=== PATIENT | female | born 1935 | race African-American/Black ===

== ENCOUNTER 2018-07-05 08:20 | Inpatient (IN) ==
[2018-07-05 09:06] LABS: Basophils % 0.1 % (0.0-0.8); Eosinophils % 0.3 % (0.00-10.9); Hematocrit 34.4 VOL% (35.7-47.0); Hemoglobin 10.8 GM/DL (12.0-16.0); Immature Granulocytes % 1.3 %; Lymphocytes # 1.2 10*3/uL (1.4-4.0); Lymphocytes % 15.4 % (21.3-54.2); Mean Corpuscular HGB Conc 31.4 GM/DL (32-36); Mean Corpuscular Hemoglobin 31 PG (27-34); Mean Corpuscular Volume 98.9 FL (87-102); Mean Platelet Volume 9.9 FL (9.6-12.0); Monocytes # 0.4 10*3/uL (0.11-0.8); Monocytes % 4.6 % (1.7-12.7); NRBC # 0.02 10*3/uL; Neutrophils % 78.3 % (38.7-73.9); Platelet Count 178 T/CUMM (130-400); Red Blood Count 3.48 MC/CUMM (3.8-5.5); Red Cell Distribution Width 15.9 % (9.3-17.3); White Blood Count 7.7 T/CUMM (4-12)
[2018-07-05] MEDS ORDERED: ALBUTEROL/IPRATROPIUM 3 ML NEB RESP TX STA (09:20)
[2018-07-05 09:23] LABS: Alanine Aminotransferase 24 U/L (13-56); Albumin 2.1 G/DL (3.4-5.0); Alkaline Phosphatase 70 U/L (45-117); Aspartate Amino Transferase 22 U/L (0-37); Bilirubin,Total < 0.39 MG/DL (0.2-1.0); Blood Urea Nitrogen 41 MG/DL (7-18); Calcium 8.7 MG/DL (8.5-10.1); Glucose 185 MG/DL (74-106); Osmolality,Calculated 271.1 MOS/KG (273-304); Potassium 4.6 MMOL/L (3.5-5.1); Sodium 128 MMOL/L (136-145); Total Protein 7.7 G/DL (6.4-8.3)
[2018-07-05 09:26] LABS: Lactic Acid 0.8 MMOL/L (0.4-2.0)
[2018-07-05 09:43] LABS: Apearance,Urine Slightly Hazy (Clear); Bacteria,Urine Occasional /HPF (Few); Bilirubin,Urine Negative (Negative); Blood, Urine Negative (Negative); Glucose,Urine (UA) Negative (Negative); Ketones,Urine Negative (Negative); Mucus,Urine Occasional /LPF (Occasional); Nitrite,Urine Negative (Negative); Protein,Urine 100 MG/DL; RBC,Urine 3 /HPF (0-4); Squamous Epithelial Cell,Urine Occasional /HPF (0-10); Urine Color Yellow (Yellow); Urine Specific Gravity 1.014 (1.001-1.035); Urine Urobilinogen < 2.0 EU/DL (0.2-1.0); WBC,Urine 3 /HPF (0-6)
[2018-07-05] MEDS ORDERED: SODIUM CHLORIDE 0.9% 1,000 ML IV STA (09:46)
[2018-07-05] MEDS ORDERED: ONDANSETRON 4 MG/2 ML VIAL IV PRN (11:53)
[2018-07-05] MEDS ORDERED: ACETAMINOPHEN 325 MG TABLET PO PRN (11:53)
[2018-07-05] MEDS ORDERED: DEXTROSE 50% 25 GM/50 ML VIAL IV PRN (15:20)
[2018-07-05] MEDS ORDERED: GLUCAGON 1 MG VIAL IM PRN (15:20)
[2018-07-05] MEDS ORDERED: LACTULOSE 20 GM/30 ML UDCUP PO ONE ×2 (16:07→16:13)
[2018-07-05] MEDS ORDERED: BISACODYL 5 MG TABLET PO PRN (16:44)
[2018-07-05] MEDS: SODIUM CHLORIDE 0.9% 1,000 ML IV SCH (17:44)
[2018-07-05] MEDS: INSULIN LISPRO 100 UNIT/ML SUBCUT SCH (17:46)
[2018-07-05] MEDS: POLYETHYLENE GLYCOL POWDER 17 GM PACK PO SCH (17:52)
[2018-07-05] MEDS: ALBUTEROL/IPRATROPIUM 3 ML NEB RESP TX SCH ×2 (19:52→23:39)
[2018-07-06] MEDS: INSULIN LISPRO 100 UNIT/ML SUBCUT SCH ×4 (01:24→16:59)
[2018-07-06] MEDS: ALBUTEROL/IPRATROPIUM 3 ML NEB RESP TX SCH ×6 (03:13→23:49)
[2018-07-06 04:00] LABS: Basophils % 0.3 % (0.0-0.8); Eosinophils % 0.4 % (0.00-10.9); Hemoglobin 9.4 GM/DL (12.0-16.0); Immature Granulocytes Absolute 0.08 #; Lymphocytes # 1.2 10*3/uL (1.4-4.0); Lymphocytes % 15.6 % (21.3-54.2); Mean Corpuscular HGB Conc 31.3 GM/DL (32-36); Mean Corpuscular Hemoglobin 31 PG (27-34); Mean Corpuscular Volume 98.4 FL (87-102); Mean Platelet Volume 10.4 FL (9.6-12.0); Monocytes # 0.4 10*3/uL (0.11-0.8); Monocytes % 5.6 % (1.7-12.7); Neutrophils # 6.1 10*3/uL (1.4-7.4); Neutrophils % 77.1 % (38.7-73.9); Platelet Count 191 T/CUMM (130-400); Red Blood Count 3.05 MC/CUMM (3.8-5.5); Red Cell Distribution Width 15.8 % (9.3-17.3); White Blood Count 7.9 T/CUMM (4-12)
[2018-07-06 04:29] LABS: Prealbumin 21.3 MG/DL (20-40)
[2018-07-06 04:34] LABS: Calcium 8.7 MG/DL (8.5-10.1); Osmolality,Calculated 277.4 MOS/KG (273-304); Potassium 4.9 MMOL/L (3.5-5.1); Thyroid Stimulating Hormone 3.76 uIU/ml (0.358-3.74)
[2018-07-06] MEDS: PANTOPRAZOLE 40 MG TABLET PO SCH (10:13)
[2018-07-06] MEDS: POLYETHYLENE GLYCOL POWDER 17 GM PACK PO SCH (10:13)
[2018-07-06] MEDS: SODIUM CHLORIDE 0.9% 1,000 ML IV SCH (13:22)
[2018-07-06] MEDS ORDERED: SODIUM PHOSPHATE ENEMA 133 ML BOTTLE RECTAL ONE (15:32)
[2018-07-07] MEDS: INSULIN LISPRO 100 UNIT/ML SUBCUT SCH ×4 (01:21→16:19)
[2018-07-07] MEDS: ALBUTEROL/IPRATROPIUM 3 ML NEB RESP TX SCH ×6 (03:40→23:58)
[2018-07-07 04:34] LABS: Basophils % 0.4 % (0.0-0.8); Eosinophils # 0.1 10*3/uL (0.0-0.87); Eosinophils % 0.9 % (0.00-10.9); Hematocrit 31.2 VOL% (35.7-47.0); Hemoglobin 9.5 GM/DL (12.0-16.0); Immature Granulocytes % 0.5 %; Immature Granulocytes Absolute 0.04 #; Lymphocytes # 1.7 10*3/uL (1.4-4.0); Lymphocytes % 22.7 % (21.3-54.2); Mean Corpuscular HGB Conc 30.4 GM/DL (32-36); Mean Corpuscular Hemoglobin 30 PG (27-34); Mean Corpuscular Volume 99.7 FL (87-102); Mean Platelet Volume 10.3 FL (9.6-12.0); Monocytes # 0.5 10*3/uL (0.11-0.8); Monocytes % 6.6 % (1.7-12.7); NRBC # 0.02 10*3/uL; Neutrophils # 5.1 10*3/uL (1.4-7.4); Neutrophils % 68.9 % (38.7-73.9); Platelet Count 201 T/CUMM (130-400); Red Blood Count 3.13 MC/CUMM (3.8-5.5); Red Cell Distribution Width 16.3 % (9.3-17.3); White Blood Count 7.4 T/CUMM (4-12)
[2018-07-07 04:58] LABS: Calcium 8.8 MG/DL (8.5-10.1); Osmolality,Calculated 281.8 MOS/KG (273-304); Potassium 4.5 MMOL/L (3.5-5.1)
[2018-07-07] MEDS ORDERED: SODIUM PHOSPHATE ENEMA 133 ML BOTTLE RECTAL PRN (09:00)
[2018-07-07] MEDS: SODIUM CHLORIDE 0.9% 1,000 ML IV SCH ×2 (10:14→17:40)
[2018-07-07] MEDS: PANTOPRAZOLE 40 MG TABLET PO SCH (10:15)
[2018-07-07] MEDS: POLYETHYLENE GLYCOL POWDER 17 GM PACK PO SCH (10:15)
[2018-07-07] MEDS: LACTULOSE 20 GM/30 ML UDCUP PO SCH ×2 (15:34→17:39)
[2018-07-08] MEDS: INSULIN LISPRO 100 UNIT/ML SUBCUT SCH ×3 (00:48→12:59)
[2018-07-08] MEDS: LACTULOSE 20 GM/30 ML UDCUP PO SCH ×3 (01:24→13:00)
[2018-07-08] MEDS: ALBUTEROL/IPRATROPIUM 3 ML NEB RESP TX SCH ×3 (04:10→10:20)
[2018-07-08 06:18] LABS: Basophils % 0.2 % (0.0-0.8); Eosinophils # 0.1 10*3/uL (0.0-0.87); Eosinophils % 1.4 % (0.00-10.9); Hematocrit 28.3 VOL% (35.7-47.0); Hemoglobin 8.7 GM/DL (12.0-16.0); Immature Granulocytes % 0.3 %; Immature Granulocytes Absolute 0.02 #; Lymphocytes # 1.4 10*3/uL (1.4-4.0); Lymphocytes % 21.7 % (21.3-54.2); Mean Corpuscular HGB Conc 30.7 GM/DL (32-36); Mean Corpuscular Hemoglobin 30 PG (27-34); Mean Corpuscular Volume 98.3 FL (87-102); Monocytes # 0.5 10*3/uL (0.11-0.8); Monocytes % 7.4 % (1.7-12.7); Neutrophils # 4.4 10*3/uL (1.4-7.4); Platelet Count 191 T/CUMM (130-400); Red Blood Count 2.88 MC/CUMM (3.8-5.5); Red Cell Distribution Width 16.3 % (9.3-17.3); White Blood Count 6.4 T/CUMM (4-12)
[2018-07-08 06:30] LABS: Calcium 8.3 MG/DL (8.5-10.1); Osmolality,Calculated 275.1 MOS/KG (273-304)
[2018-07-08] MEDS: PANTOPRAZOLE 40 MG TABLET PO SCH (10:35)
[2018-07-08] MEDS: POLYETHYLENE GLYCOL POWDER 17 GM PACK PO SCH (10:35)
[2018-07-08 20:34] VITALS: BP 152/69
== END 2018-07-08 13:00 | DRG 204 ==
LOC: EDUNIT# → EDBD → N.ED 08:20 → N.EDINP 10:57 → N.2W 13:40 → N.5E 14:46
PROVIDERS: ADMIT Internal Medicine; ATTEND Internal Medicine

== ENCOUNTER 2018-07-11 21:27 | Observation (INO) ==
[2018-07-11 22:43] LABS: Basophils % 0.3 % (0.0-0.8); Eosinophils # 0.1 10*3/uL (0.0-0.87); Eosinophils % 1.6 % (0.00-10.9); Hematocrit 30.9 VOL% (35.7-47.0); Immature Granulocytes % 0.3 %; Immature Granulocytes Absolute 0.02 #; Lymphocytes # 1.8 10*3/uL (1.4-4.0); Lymphocytes % 27.5 % (21.3-54.2); Mean Corpuscular HGB Conc 32.4 GM/DL (32-36); Mean Corpuscular Hemoglobin 31 PG (27-34); Mean Corpuscular Volume 95.1 FL (87-102); Monocytes # 0.4 10*3/uL (0.11-0.8); Monocytes % 5.9 % (1.7-12.7); Neutrophils # 4.1 10*3/uL (1.4-7.4); Neutrophils % 64.4 % (38.7-73.9); Platelet Count 213 T/CUMM (130-400); Red Blood Count 3.25 MC/CUMM (3.8-5.5); Red Cell Distribution Width 16.2 % (9.3-17.3); VBG Base Excess 17.8 MEQ/L (0-4); VBG HCO3 41.9 MEQ/L (24-28); VBG Oxygen Saturation 98.7 %; VBG PCO2 46.8 MMHG (41-51); VBG PO2 151.1 MMHG (17-40); White Blood Count 6.4 T/CUMM (4-12)
[2018-07-11 23:10] LABS: Alanine Aminotransferase 24 U/L (13-56); Albumin 1.8 G/DL (3.4-5.0); Alkaline Phosphatase 60 U/L (45-117); Aspartate Amino Transferase 37 U/L (0-37); Bilirubin,Total < 0.39 MG/DL (0.2-1.0); Blood Urea Nitrogen 24 MG/DL (7-18); Glucose 99 MG/DL (74-106); Osmolality,Calculated 278.7 MOS/KG (273-304); Potassium 3.6 MMOL/L (3.5-5.1); Sodium 138 MMOL/L (136-145); Total Protein 6.3 G/DL (6.4-8.3)
[2018-07-12] MEDS ORDERED: SODIUM CHLORIDE 0.9% 1,000 ML IV PRN (02:08)
[2018-07-12 02:46] LABS: ABG Base Excess 14.7 MMOL/L (-2.5-2.5); ABG HCO3 38.6 MMOL/L (20-26); ABG Oxygen Saturation 95.5 % (95-100); ABG PCO2 54.3 MM HG (35-48); ABG PH 7.483 (7.35-7.45); ABG PO2 74.5 MM HG (80-95); ABG TCO2 36.6 MMOL/L (23-27); Allen Test Positive; Pt O2 Delivery Device Room Air
[2018-07-12] MEDS ORDERED: FUROSEMIDE 40 MG/4 ML VIAL IV STA (03:07)
[2018-07-12] MEDS ORDERED: ACETAMINOPHEN 500 MG TABLET PO PRN (06:07)
[2018-07-12] MEDS ORDERED: BISACODYL 5 MG TABLET PO PRN (06:07)
[2018-07-12] MEDS ORDERED: ONDANSETRON 4 MG/2 ML VIAL IV PRN (06:07)
[2018-07-12] MEDS ORDERED: ACETAMINOPHEN 325 MG TABLET PEG PRN (06:07)
[2018-07-12] MEDS ORDERED: ALBUTEROL/IPRATROPIUM 3 ML NEB RESP TX PRN ×2 (06:07)
[2018-07-12] MEDS ORDERED: guaiFENesin 200 MG/10 ML UDCUP PEG PRN (06:07)
[2018-07-12] MEDS ORDERED: SODIUM PHOSPHATE ENEMA 133 ML BOTTLE RECTAL PRN (06:07)
[2018-07-12] MEDS: LEVOTHYROXINE 100 MCG TABLET PEG SCH (08:14)
[2018-07-12] MEDS: FAMOTIDINE 20 MG TABLET PEG SCH (09:35)
[2018-07-12] MEDS: POLYETHYLENE GLYCOL POWDER 17 GM PACK PO SCH (09:35)
[2018-07-12] MEDS: FOLIC ACID 1 MG TABLET PEG SCH (09:36)
[2018-07-12] MEDS: MULTIVITAMIN (BEROCCA) TABLET PEG SCH (09:36)
[2018-07-12] MEDS: FERROUS SULFATE 300 MG/5 ML UDCUP PEG SCH ×2 (09:36→23:37)
[2018-07-12] MEDS: POTASSIUM CHLORIDE 20 MEQ/15 ML UDCUP PEG SCH (09:36)
[2018-07-12] MEDS: amLODIPine 10 MG TABLET PEG SCH (09:36)
[2018-07-12] MEDS ORDERED: GLUCAGON 1 MG VIAL IM PRN (10:43)
[2018-07-12] MEDS ORDERED: DEXTROSE 50% 25 GM/50 ML VIAL IV PRN (10:43)
[2018-07-12] MEDS ORDERED: SCOPOLAMINE 1.5 MG PATCH TRANSDERM SCH (12:00)
[2018-07-12] MEDS: INSULIN REGULAR 100 UNIT/ML SUBCUT SCH ×2 (13:47→18:49)
[2018-07-12] MEDS ORDERED: MAGNESIUM HYDROXIDE SUSP 30 ML UDCUP PO ONE (16:10)
[2018-07-12] MEDS: MULTIVITAMIN LIQUID (CENTRUM) 60 ML BOTTLE PEG SCH (17:38)
[2018-07-12] MEDS: BISACODYL 5 MG TABLET PO SCH (17:39)
[2018-07-12] MEDS ORDERED: MONTELUKAST 10 MG TABLET PO SCH (21:00)
[2018-07-13] MEDS: INSULIN REGULAR 100 UNIT/ML SUBCUT SCH ×3 (00:46→11:16)
[2018-07-13] MEDS: LEVOTHYROXINE 100 MCG TABLET PEG SCH (06:16)
[2018-07-13 07:14] LABS: Basophils % 0.3 % (0.0-0.8); Eosinophils # 0.2 10*3/uL (0.0-0.87); Eosinophils % 2.1 % (0.00-10.9); Hematocrit 32.6 VOL% (35.7-47.0); Immature Granulocytes % 0.6 %; Immature Granulocytes Absolute 0.04 #; Lymphocytes # 1.4 10*3/uL (1.4-4.0); Lymphocytes % 20.4 % (21.3-54.2); Mean Corpuscular HGB Conc 30.7 GM/DL (32-36); Mean Corpuscular Hemoglobin 30 PG (27-34); Mean Corpuscular Volume 98.8 FL (87-102); Monocytes # 0.5 10*3/uL (0.11-0.8); Monocytes % 7.7 % (1.7-12.7); Neutrophils # 4.8 10*3/uL (1.4-7.4); Neutrophils % 68.9 % (38.7-73.9); Platelet Count 204 T/CUMM (130-400); Red Cell Distribution Width 16.6 % (9.3-17.3)
[2018-07-13 07:41] LABS: Alanine Aminotransferase 22 U/L (13-56); Albumin 1.6 G/DL (3.4-5.0); Alkaline Phosphatase 61 U/L (45-117); Aspartate Amino Transferase 27 U/L (0-37); Bilirubin,Total < 0.39 MG/DL (0.2-1.0); Blood Urea Nitrogen 26 MG/DL (7-18); Calcium 8.5 MG/DL (8.5-10.1); Glucose 109 MG/DL (74-106); Osmolality,Calculated 284.4 MOS/KG (273-304); Potassium 3.8 MMOL/L (3.5-5.1); Sodium 140 MMOL/L (136-145); Total Protein 6.4 G/DL (6.4-8.3)
[2018-07-13 07:43] LABS: Calcium 8.4 MG/DL (8.5-10.1); Osmolality,Calculated 283.4 MOS/KG (273-304); Potassium 3.7 MMOL/L (3.5-5.1); Prealbumin 17.3 MG/DL (20-40)
[2018-07-13] MEDS: POTASSIUM CHLORIDE 20 MEQ/15 ML UDCUP PEG SCH (08:55)
[2018-07-13] MEDS: POLYETHYLENE GLYCOL POWDER 17 GM PACK PO SCH (08:55)
[2018-07-13] MEDS: FERROUS SULFATE 300 MG/5 ML UDCUP PEG SCH (08:56)
[2018-07-13] MEDS: BISACODYL 5 MG TABLET PO SCH (08:56)
[2018-07-13] MEDS: FOLIC ACID 1 MG TABLET PEG SCH (08:56)
[2018-07-13] MEDS: amLODIPine 10 MG TABLET PEG SCH (08:56)
[2018-07-13] MEDS: MULTIVITAMIN (BEROCCA) TABLET PEG SCH (08:56)
[2018-07-13] MEDS: FAMOTIDINE 20 MG TABLET PEG SCH (08:56)
[2018-07-13] MEDS: MULTIVITAMIN LIQUID (CENTRUM) 60 ML BOTTLE PEG SCH (08:57)
[2018-07-13 11:23] VITALS: BP 174/74
== END 2018-07-13 11:43 ==
LOC: EDBD → EDUNIT# → N.EDINP 21:27 → N.ED 21:27 → N.5E 07-12 05:41
PROVIDERS: ADMIT Internal Medicine; ATTEND Internal Medicine

== ENCOUNTER 2018-07-19 10:20 | Inpatient (IN) ==
[2018-07-19] MEDS ORDERED: SODIUM CHLORIDE 0.9% 500 ML IV STA (10:46)
[2018-07-19] MEDS ORDERED: VANCOMYCIN INJ 1,000 MG in SODIUM CHLORIDE 0.9% 250 ML IV STA (10:46)
[2018-07-19] MEDS ORDERED: ALBUTEROL/IPRATROPIUM 3 ML NEB RESP TX STA (10:52)
[2018-07-19 11:34] LABS: Basophils % 0.2 % (0.0-0.8); Eosinophils # 0.1 10*3/uL (0.0-0.87); Eosinophils % 1.4 % (0.00-10.9); Hemoglobin 10.9 GM/DL (12.0-16.0); Immature Granulocytes % 0.6 %; Immature Granulocytes Absolute 0.05 #; Lymphocytes # 1.4 10*3/uL (1.4-4.0); Mean Corpuscular HGB Conc 31.1 GM/DL (32-36); Mean Corpuscular Hemoglobin 31 PG (27-34); Mean Corpuscular Volume 98.9 FL (87-102); Mean Platelet Volume 9.9 FL (9.6-12.0); Monocytes # 0.3 10*3/uL (0.11-0.8); Monocytes % 3.3 % (1.7-12.7); NRBC # 0.03 10*3/uL; Neutrophils # 6.9 10*3/uL (1.4-7.4); Neutrophils % 78.5 % (38.7-73.9); Platelet Count 268 T/CUMM (130-400); Red Blood Count 3.54 MC/CUMM (3.8-5.5); Red Cell Distribution Width 15.9 % (9.3-17.3); White Blood Count 8.8 T/CUMM (4-12)
[2018-07-19 11:42] LABS: INR 0.9; PT Patient Result 9.7 SECS
[2018-07-19] MEDS ORDERED: FUROSEMIDE 40 MG/4 ML VIAL IV STA (11:44)
[2018-07-19 11:53] LABS: Alanine Aminotransferase 21 U/L (13-56); Albumin 1.9 G/DL (3.4-5.0); Alkaline Phosphatase 73 U/L (45-117); Aspartate Amino Transferase 22 U/L (0-37); Bilirubin,Total < 0.39 MG/DL (0.2-1.0); Blood Urea Nitrogen 34 MG/DL (7-18); Glucose 251 MG/DL (74-106); Osmolality,Calculated 283.2 MOS/KG (273-304); Potassium 3.8 MMOL/L (3.5-5.1); Sodium 134 MMOL/L (136-145); Total Protein 7.8 G/DL (6.4-8.3); Troponin I 0.119 NG/ML (0.00-0.045)
[2018-07-19 11:57] LABS: Ammonia 64 UMOL/L (11-32)
[2018-07-19 11:59] LABS: Lactic Acid 0.7 MMOL/L (0.4-2.0)
[2018-07-19 12:29] LABS: ABG Base Excess 13.8 MMOL/L (-2.5-2.5); ABG HCO3 37.6 MMOL/L (20-26); ABG Oxygen Saturation 96.2 % (95-100); ABG PH 7.235 (7.35-7.45); ABG PO2 95.5 MM HG (80-95); ABG TCO2 42.6 MMOL/L (23-27)
[2018-07-19 13:10] LABS: Apearance,Urine Slightly Hazy (Clear); Bilirubin,Urine Negative (Negative); Blood, Urine Negative (Negative); Glucose,Urine (UA) 50 mg/dL (Negative); Ketones,Urine Negative (Negative); Nitrite,Urine Negative (Negative); Protein,Urine >=500 MG/DL; RBC,Urine 5 /HPF (0-4); Urine Color Yellow (Yellow); Urine Specific Gravity 1.017 (1.001-1.035); Urine Urobilinogen < 2.0 EU/DL (0.2-1.0); WBC,Urine 8 /HPF (0-6)
[2018-07-19 13:13] LABS: Barbiturates Screen,Urine Negative (Negative); Benzodiazepines Screen,Urine Negative (Negative); Cannabinoid Screen,Urine Negative (Negative); Opiate Screen,Urine Negative (Negative); Phencyclidine Screen,Urine Negative (Negative)
[2018-07-19] MEDS ORDERED: SODIUM CHLORIDE 0.9% 250 ML IV ONE (13:29)
[2018-07-19] MEDS ORDERED: ALBUTEROL/IPRATROPIUM 3 ML NEB RESP TX PRN (16:31)
[2018-07-19] MEDS ORDERED: ONDANSETRON 4 MG/2 ML VIAL IV PRN (16:31)
[2018-07-19] MEDS: methylPREDNISolone SOD SUC 125 MG/2 ML VIAL IV SCH ×2 (17:58→23:51)
[2018-07-19] MEDS: CEFUROXIME INJ 1,500 MG in SYRINGE 1 EACH IV SCH (17:58)
[2018-07-19 18:02] LABS: ABG Base Excess 16.5 MMOL/L (-2.5-2.5); ABG HCO3 40.5 MMOL/L (20-26); ABG Oxygen Saturation 95.2 % (95-100); ABG PH 7.388 (7.35-7.45); ABG PO2 73.5 MM HG (80-95); ABG TCO2 41.1 MMOL/L (23-27)
[2018-07-19 18:05] LABS: ABG PCO2 74.8 MM HG (35-48)
[2018-07-19] MEDS: VANCOMYCIN INJ 1,250 MG in SODIUM CHLORIDE 0.9% 250 ML IV SCH (18:35)
[2018-07-19] MEDS ORDERED: amLODIPine 10 MG TABLET PO ONE (20:03)
[2018-07-19] MEDS ORDERED: cloNIDine 0.1 MG TABLET PO ONE (20:04)
[2018-07-19] MEDS: ENOXAPARIN 40 MG/0.4 ML SYRINGE SUBCUT SCH (20:45)
[2018-07-20 04:21] LABS: ABG Base Excess 17.1 MMOL/L (-2.5-2.5); ABG HCO3 41.2 MMOL/L (20-26); ABG Oxygen Saturation 95.1 % (95-100); ABG PCO2 63.6 MM HG (35-48); ABG PH 7.452 (7.35-7.45); ABG PO2 73.3 MM HG (80-95); ABG TCO2 40.1 MMOL/L (23-27); Allen Test Positive; Pt O2 Delivery Device Other
[2018-07-20 05:24] LABS: Basophils % 0.1 % (0.0-0.8); Hematocrit 31.6 VOL% (35.7-47.0); Immature Granulocytes % 0.3 %; Immature Granulocytes Absolute 0.03 #; Lymphocytes # 0.6 10*3/uL (1.4-4.0); Lymphocytes % 6.4 % (21.3-54.2); Mean Corpuscular HGB Conc 31.6 GM/DL (32-36); Mean Corpuscular Hemoglobin 30 PG (27-34); Mean Corpuscular Volume 94.9 FL (87-102); Mean Platelet Volume 9.9 FL (9.6-12.0); Monocytes % 0.3 % (1.7-12.7); Neutrophils # 9.1 10*3/uL (1.4-7.4); Neutrophils % 92.9 % (38.7-73.9); Platelet Count 250 T/CUMM (130-400); Red Blood Count 3.33 MC/CUMM (3.8-5.5); Red Cell Distribution Width 15.9 % (9.3-17.3); White Blood Count 9.8 T/CUMM (4-12)
[2018-07-20 05:42] LABS: Calcium 8.8 MG/DL (8.5-10.1)
[2018-07-20 05:43] LABS: Potassium 3.5 MMOL/L (3.5-5.1)
[2018-07-20 06:04] LABS: Band Neutrophils 1 % (0-10); Lymphocytes 4 % (20-55); Platelet Estimate Adequate; Segmented Neutrophils 95 % (50-85); Total Cells Counted 100
[2018-07-20 06:05] LABS: Hypochromasia 1+
[2018-07-20] MEDS: CEFUROXIME INJ 1,500 MG in SYRINGE 1 EACH IV SCH ×2 (06:20→17:24)
[2018-07-20] MEDS: VANCOMYCIN INJ 1,250 MG in SODIUM CHLORIDE 0.9% 250 ML IV SCH ×2 (06:20→18:33)
[2018-07-20] MEDS: LEVOTHYROXINE 100 MCG TABLET PEG SCH (06:20)
[2018-07-20] MEDS: methylPREDNISolone SOD SUC 125 MG/2 ML VIAL IV SCH ×2 (06:42→17:25)
[2018-07-20] MEDS ORDERED: cloNIDine 0.1 MG TABLET PO PRN ×2 (07:54→07:57)
[2018-07-20] MEDS: INSULIN GLARGINE 100 UNIT/ML SUBCUT SCH (08:13)
[2018-07-20] MEDS: POTASSIUM CHLORIDE 20 MEQ/15 ML UDCUP PEG SCH (08:15)
[2018-07-20] MEDS: FAMOTIDINE 20 MG TABLET PEG SCH (08:16)
[2018-07-20] MEDS: CARVEDILOL 6.25 MG TABLET PO SCH ×2 (08:17→20:18)
[2018-07-20] MEDS: amLODIPine 10 MG TABLET PO SCH (08:20)
[2018-07-20] MEDS ORDERED: GLUCAGON 1 MG VIAL IM PRN (12:34)
[2018-07-20] MEDS ORDERED: DEXTROSE 50% 25 GM/50 ML SYRINGE IV PRN (12:34)
[2018-07-20] MEDS: INSULIN REGULAR 100 UNIT/ML SUBCUT SCH (18:20)
[2018-07-20] MEDS: ENOXAPARIN 40 MG/0.4 ML SYRINGE SUBCUT SCH (20:25)
[2018-07-21] MEDS: INSULIN REGULAR 100 UNIT/ML SUBCUT SCH ×4 (00:15→18:00)
[2018-07-21] MEDS: VANCOMYCIN INJ 1,250 MG in SODIUM CHLORIDE 0.9% 250 ML IV SCH ×2 (01:05→18:00)
[2018-07-21 04:59] LABS: Allen Test Positive
[2018-07-21 05:00] LABS: ABG Base Excess 16.7 MMOL/L (-2.5-2.5); ABG HCO3 40.7 MMOL/L (20-26); ABG Oxygen Saturation 95.6 % (95-100); ABG PCO2 60.4 MM HG (35-48); ABG PH 7.466 (7.35-7.45); ABG PO2 76.8 MM HG (80-95); ABG TCO2 39.3 MMOL/L (23-27)
[2018-07-21] MEDS: CEFUROXIME INJ 1,500 MG in SYRINGE 1 EACH IV SCH ×2 (05:45→16:40)
[2018-07-21] MEDS: methylPREDNISolone SOD SUC 125 MG/2 ML VIAL IV SCH ×2 (05:46→18:00)
[2018-07-21] MEDS: LEVOTHYROXINE 100 MCG TABLET PEG SCH (05:46)
[2018-07-21 05:52] LABS: Osmolality,Calculated 294.4 MOS/KG (273-304); Potassium 3.2 MMOL/L (3.5-5.1)
[2018-07-21 05:55] LABS: Prealbumin 20.2 MG/DL (20-40)
[2018-07-21] MEDS: INSULIN GLARGINE 100 UNIT/ML SUBCUT SCH (08:25)
[2018-07-21] MEDS: FAMOTIDINE 20 MG TABLET PEG SCH (08:30)
[2018-07-21] MEDS: POTASSIUM CHLORIDE 20 MEQ/15 ML UDCUP PEG SCH (08:30)
[2018-07-21] MEDS: amLODIPine 10 MG TABLET PO SCH (08:30)
[2018-07-21] MEDS: CARVEDILOL 6.25 MG TABLET PO SCH ×2 (08:45→20:45)
[2018-07-21] MEDS: POTASSIUM CHLORIDE 20 MEQ/15 ML UDCUP PER TUBE SCH ×3 (09:55→16:40)
[2018-07-21 16:07] LABS: ABG HCO3 44.2 MMOL/L (20-26); ABG Oxygen Saturation 92.2 % (95-100); ABG PH 7.485 (7.35-7.45); ABG PO2 69.2 MM HG (80-95); Pt O2 Delivery Device Room Air
[2018-07-21] MEDS: ENOXAPARIN 40 MG/0.4 ML SYRINGE SUBCUT SCH (21:45)
[2018-07-22] MEDS: INSULIN REGULAR 100 UNIT/ML SUBCUT SCH ×4 (00:19→18:20)
[2018-07-22 05:54] LABS: Hemoglobin 9.5 GM/DL (12.0-16.0); Immature Granulocytes % 0.5 %; Immature Granulocytes Absolute 0.04 #; Lymphocytes # 0.7 10*3/uL (1.4-4.0); Lymphocytes % 8.8 % (21.3-54.2); Mean Corpuscular HGB Conc 31.7 GM/DL (32-36); Mean Corpuscular Hemoglobin 31 PG (27-34); Mean Corpuscular Volume 97.4 FL (87-102); Mean Platelet Volume 10.1 FL (9.6-12.0); Monocytes # 0.2 10*3/uL (0.11-0.8); Monocytes % 2.8 % (1.7-12.7); Neutrophils # 6.8 10*3/uL (1.4-7.4); Neutrophils % 87.9 % (38.7-73.9); Platelet Count 249 T/CUMM (130-400); Red Blood Count 3.08 MC/CUMM (3.8-5.5); Red Cell Distribution Width 16.6 % (9.3-17.3); White Blood Count 7.8 T/CUMM (4-12)
[2018-07-22 06:10] LABS: Calcium 8.1 MG/DL (8.5-10.1); Osmolality,Calculated 292.7 MOS/KG (273-304)
[2018-07-22] MEDS: CEFUROXIME INJ 1,500 MG in SYRINGE 1 EACH IV SCH ×2 (06:10→16:40)
[2018-07-22] MEDS: LEVOTHYROXINE 100 MCG TABLET PEG SCH (06:42)
[2018-07-22] MEDS: methylPREDNISolone SOD SUC 125 MG/2 ML VIAL IV SCH (06:42)
[2018-07-22] MEDS: POTASSIUM CHLORIDE 20 MEQ/15 ML UDCUP PEG SCH (09:30)
[2018-07-22] MEDS: INSULIN GLARGINE 100 UNIT/ML SUBCUT SCH (09:30)
[2018-07-22] MEDS: amLODIPine 10 MG TABLET PO SCH (09:30)
[2018-07-22] MEDS: FAMOTIDINE 20 MG TABLET PEG SCH (09:30)
[2018-07-22] MEDS: CARVEDILOL 6.25 MG TABLET PO SCH (09:30)
[2018-07-22] MEDS: LISINOPRIL 5 MG TABLET PO SCH (11:10)
[2018-07-22] MEDS: VANCOMYCIN INJ 1,250 MG in SODIUM CHLORIDE 0.9% 250 ML IV SCH (12:15)
[2018-07-22] MEDS ORDERED: methylPREDNISolone SOD SUC 125 MG/2 ML VIAL IV SCH (18:00)
[2018-07-22] MEDS: methylPREDNISolone SOD SUC 40 MG/1 ML VIAL IV SCH (18:22)
[2018-07-22] MEDS: ENOXAPARIN 40 MG/0.4 ML SYRINGE SUBCUT SCH (21:40)
[2018-07-23] MEDS: INSULIN REGULAR 100 UNIT/ML SUBCUT SCH ×3 (00:28→12:09)
[2018-07-23] MEDS: methylPREDNISolone SOD SUC 40 MG/1 ML VIAL IV SCH (06:10)
[2018-07-23] MEDS: CEFUROXIME INJ 1,500 MG in SYRINGE 1 EACH IV SCH (06:46)
[2018-07-23] MEDS: LEVOTHYROXINE 100 MCG TABLET PEG SCH (06:48)
[2018-07-23 07:52] LABS: Hemoglobin 10.5 GM/DL (12.0-16.0); Immature Granulocytes % 0.8 %; Immature Granulocytes Absolute 0.08 #; Lymphocytes % 10.1 % (21.3-54.2); Mean Corpuscular HGB Conc 31.8 GM/DL (32-36); Mean Corpuscular Hemoglobin 31 PG (27-34); Mean Corpuscular Volume 95.9 FL (87-102); Mean Platelet Volume 10.1 FL (9.6-12.0); Monocytes # 0.4 10*3/uL (0.11-0.8); Monocytes % 4.4 % (1.7-12.7); Neutrophils # 8.2 10*3/uL (1.4-7.4); Neutrophils % 84.7 % (38.7-73.9); Platelet Count 265 T/CUMM (130-400); Red Blood Count 3.44 MC/CUMM (3.8-5.5); Red Cell Distribution Width 16.1 % (9.3-17.3); White Blood Count 9.7 T/CUMM (4-12)
[2018-07-23] MEDS: FAMOTIDINE 20 MG TABLET PEG SCH (08:16)
[2018-07-23] MEDS: INSULIN GLARGINE 100 UNIT/ML SUBCUT SCH (08:16)
[2018-07-23] MEDS: LISINOPRIL 5 MG TABLET PO SCH (08:16)
[2018-07-23] MEDS: POTASSIUM CHLORIDE 20 MEQ/15 ML UDCUP PEG SCH (08:16)
[2018-07-23] MEDS: amLODIPine 10 MG TABLET PO SCH (08:17)
[2018-07-23 08:18] LABS: Calcium 8.6 MG/DL (8.5-10.1); Osmolality,Calculated 289.7 MOS/KG (273-304); Potassium 3.9 MMOL/L (3.5-5.1)
[2018-07-23 12:38] VITALS: BP 171/72
[2018-07-23] MEDS ORDERED: predniSONE 20 MG TABLET PO SCH (21:00)
== END 2018-07-23 14:46 | DRG 177 ==
LOC: EDUNIT# → EDBD → N.ED 10:20 → N.ICU 14:02 → SUATTDRO 14:02 → N.ICU 16:50 → N.5E 07-22 20:09
PROVIDERS: ADMIT Internal Medicine; ATTEND Family Medicine

== ENCOUNTER 2018-08-20 07:58 | Inpatient (IN) ==
[2018-08-20 09:06] LABS: ABG Base Excess 14.8 MMOL/L (-2.5-2.5); ABG HCO3 38.6 MMOL/L (20-26); ABG Oxygen Saturation 91.1 % (95-100); ABG PH 7.288 (7.35-7.45); ABG PO2 68.3 MM HG (80-95)
[2018-08-20 09:25] LABS: Apearance,Urine CLOUDY (Clear); Bacteria,Urine Moderate /HPF (Few); Bilirubin,Urine Negative (Negative); Blood, Urine Negative (Negative); Glucose,Urine (UA) 150 mg/dL (Negative); Ketones,Urine Negative (Negative); Nitrite,Urine Negative (Negative); Protein,Urine >=500 MG/DL; RBC,Urine 9 /HPF (0-4); Squamous Epithelial Cell,Urine Occasional /HPF (0-10); Urine Color Amber (Yellow); Urine Specific Gravity 1.019 (1.001-1.035); Urine Urobilinogen < 2.0 EU/DL (0.2-1.0)
[2018-08-20 09:47] LABS: Basophils % 0.4 % (0.0-0.8); Eosinophils % 0.4 % (0.00-10.9); Hematocrit 32.8 VOL% (35.7-47.0); Hemoglobin 9.9 GM/DL (12.0-16.0); Immature Granulocytes % 1.6 %; Immature Granulocytes Absolute 0.12 #; Lymphocytes # 1.2 10*3/uL (1.4-4.0); Lymphocytes % 15.9 % (21.3-54.2); Mean Corpuscular HGB Conc 30.2 GM/DL (32-36); Mean Corpuscular Hemoglobin 30 PG (27-34); Mean Corpuscular Volume 100.6 FL (87-102); Mean Platelet Volume 10.4 FL (9.6-12.0); Monocytes # 0.4 10*3/uL (0.11-0.8); Monocytes % 4.6 % (1.7-12.7); NRBC # 0.05 10*3/uL; Neutrophils # 5.8 10*3/uL (1.4-7.4); Neutrophils % 77.1 % (38.7-73.9); Platelet Count 232 T/CUMM (130-400); Red Blood Count 3.26 MC/CUMM (3.8-5.5); Red Cell Distribution Width 15.9 % (9.3-17.3); White Blood Count 7.6 T/CUMM (4-12)
[2018-08-20 10:02] LABS: INR 0.9; PT Patient Result 9.8 SECS; Partial Thromboplastin Time 28.3 SECS (0-40)
[2018-08-20 11:12] LABS: Alanine Aminotransferase 14 U/L (13-56); Albumin 1.7 G/DL (3.4-5.0); Alkaline Phosphatase 85 U/L (45-117); Aspartate Amino Transferase 20 U/L (0-37); Bilirubin,Total < 0.39 MG/DL (0.2-1.0); Blood Urea Nitrogen 33 MG/DL (7-18); Calcium 8.2 MG/DL (8.5-10.1); Glucose 230 MG/DL (74-106); Osmolality,Calculated 286.8 MOS/KG (273-304); Potassium 4.2 MMOL/L (3.5-5.1); Sodium 137 MMOL/L (136-145); Total Protein 5.9 G/DL (6.4-8.3)
[2018-08-20 11:56] LABS: ABG Base Excess 14.9 MMOL/L (-2.5-2.5); ABG HCO3 38.7 MMOL/L (20-26); ABG Oxygen Saturation 94.9 % (95-100); ABG PH 7.277 (7.35-7.45); ABG PO2 82.5 MM HG (80-95); ABG TCO2 42.4 MMOL/L (23-27); Allen Test Positive; Pt O2 Delivery Device BIPAP
[2018-08-20 11:57] LABS: ABG PCO2 98.6 MM HG (35-48)
[2018-08-20] MEDS ORDERED: ONDANSETRON 4 MG/2 ML VIAL IV PRN (12:19)
[2018-08-20] MEDS ORDERED: ACETAMINOPHEN 325 MG TABLET PO PRN (12:19)
[2018-08-20] MEDS ORDERED: ALBUTEROL 2.5 MG/3 ML NEB RESP TX PRN (12:19)
[2018-08-20] MEDS: PIPERACILLIN/TAZOBACTAM 3,375 MG in SODIUM CHLORIDE 0.9% 100 ML IV SCH ×2 (12:50→20:34)
[2018-08-20] MEDS: ALBUTEROL/IPRATROPIUM 3 ML NEB RESP TX SCH ×2 (13:26→19:18)
[2018-08-20] MEDS: methylPREDNISolone SOD SUC 40 MG/1 ML VIAL IV SCH ×2 (14:27→20:31)
[2018-08-20] MEDS: PANTOPRAZOLE 40 MG VIAL IV SCH (14:28)
[2018-08-20] MEDS: ENOXAPARIN 40 MG/0.4 ML SYRINGE SUBCUT SCH (14:28)
[2018-08-20] MEDS ORDERED: GLUCAGON 1 MG VIAL IM PRN (16:28)
[2018-08-20] MEDS ORDERED: DEXTROSE 50% 25 GM/50 ML SYRINGE IV PRN (16:28)
[2018-08-20] MEDS: SODIUM CHLORIDE 0.9% 1,000 ML IV SCH (17:08)
[2018-08-20] MEDS: INSULIN LISPRO 100 UNIT/ML SUBCUT SCH ×2 (18:12→23:53)
[2018-08-20] MEDS ORDERED: VECURONIUM 10 MG VIAL IV ONE ×2 (18:49→18:55)
[2018-08-20] MEDS ORDERED: ETOMIDATE 20 MG/10 ML VIAL IV ONE ×2 (18:50→18:55)
[2018-08-20] MEDS: PROPOFOL 1,000 MG/100 ML BOTTLE IV SCH (20:10)
[2018-08-20 20:26] LABS: ABG Base Excess 16.7 MMOL/L (-2.5-2.5); ABG HCO3 40.6 MMOL/L (20-26); ABG Oxygen Saturation 89.4 % (95-100); ABG PCO2 44.9 MM HG (35-48); ABG PO2 47.9 MM HG (80-95); ABG TCO2 37.1 MMOL/L (23-27); Allen Test Positive; Pt O2 Delivery Device Ventilator
[2018-08-20] MEDS: FERROUS SULFATE 300 MG/5 ML UDCUP PEG SCH (20:34)
[2018-08-20 21:13] LABS: Allen Test Positive; Pt O2 Delivery Device Ventilator
[2018-08-20] MEDS ORDERED: PHENYLEPHRINE DRIP 40 MG/250 ML PREMIX IV PRN (21:20)
[2018-08-20] MEDS ORDERED: PHENYLEPHRINE DRIP 40 MG/250 ML PREMIX IV ONE (21:21)
[2018-08-20 21:31] LABS: ABG Base Excess 18.2 MMOL/L (-2.5-2.5); ABG HCO3 41.6 MMOL/L (20-26); ABG TCO2 42.9 MMOL/L (23-27)
[2018-08-20 21:32] LABS: ABG PH 7.603 (7.35-7.45)
[2018-08-21] MEDS: PROPOFOL 1,000 MG/100 ML BOTTLE IV SCH ×4 (00:04→16:38)
[2018-08-21] MEDS: ALBUTEROL/IPRATROPIUM 3 ML NEB RESP TX SCH ×4 (00:21→20:00)
[2018-08-21 05:15] LABS: ABG HCO3 38.8 MMOL/L (20-26); ABG Oxygen Saturation 96.6 % (95-100); ABG PCO2 44.6 MM HG (35-48); ABG PH 7.552 (7.35-7.45); ABG PO2 89.3 MM HG (80-95); ABG TCO2 36.4 MMOL/L (23-27); Allen Test Positive; Pt O2 Delivery Device Ventilator
[2018-08-21] MEDS: methylPREDNISolone SOD SUC 40 MG/1 ML VIAL IV SCH ×3 (05:18→21:03)
[2018-08-21] MEDS: PIPERACILLIN/TAZOBACTAM 3,375 MG in SODIUM CHLORIDE 0.9% 100 ML IV SCH ×3 (05:21→21:04)
[2018-08-21 05:25] LABS: Basophils % 0.1 % (0.0-0.8); Hematocrit 28.2 VOL% (35.7-47.0); Hemoglobin 8.8 GM/DL (12.0-16.0); Immature Granulocytes % 0.6 %; Immature Granulocytes Absolute 0.07 #; Lymphocytes % 9.4 % (21.3-54.2); Mean Corpuscular HGB Conc 31.2 GM/DL (32-36); Mean Corpuscular Hemoglobin 30 PG (27-34); Mean Corpuscular Volume 95.6 FL (87-102); Mean Platelet Volume 10.8 FL (9.6-12.0); Monocytes # 0.2 10*3/uL (0.11-0.8); Monocytes % 1.9 % (1.7-12.7); NRBC # 0.04 10*3/uL; Neutrophils # 9.6 10*3/uL (1.4-7.4); Platelet Count 235 T/CUMM (130-400); Red Blood Count 2.95 MC/CUMM (3.8-5.5); Red Cell Distribution Width 15.6 % (9.3-17.3); White Blood Count 10.9 T/CUMM (4-12)
[2018-08-21 05:48] LABS: Calcium 8.1 MG/DL (8.5-10.1); Osmolality,Calculated 288.7 MOS/KG (273-304); Potassium 3.9 MMOL/L (3.5-5.1)
[2018-08-21] MEDS: LEVOTHYROXINE 100 MCG TABLET PEG SCH (05:51)
[2018-08-21] MEDS: SODIUM CHLORIDE 0.9% 1,000 ML IV SCH ×2 (05:54→19:46)
[2018-08-21] MEDS: INSULIN LISPRO 100 UNIT/ML SUBCUT SCH ×4 (05:59→23:51)
[2018-08-21 06:08] LABS: Anisocytosis Slight; Platelet Estimate Normal
[2018-08-21 06:09] LABS: Macrocytosis Slight; Smudge Cells Few
[2018-08-21] MEDS: FOLIC ACID 1 MG TABLET PEG SCH (08:22)
[2018-08-21] MEDS: MONTELUKAST 10 MG TABLET PEG SCH (08:22)
[2018-08-21] MEDS: POLYETHYLENE GLYCOL POWDER 17 GM PACK PEG SCH (08:23)
[2018-08-21] MEDS: FERROUS SULFATE 300 MG/5 ML UDCUP PEG SCH ×2 (08:23→21:04)
[2018-08-21] MEDS: amLODIPine 10 MG TABLET PEG SCH (08:23)
[2018-08-21] MEDS: POTASSIUM CHLORIDE 20 MEQ/15 ML UDCUP PEG SCH (08:23)
[2018-08-21] MEDS: INSULIN GLARGINE 100 UNIT/ML SUBCUT SCH (08:24)
[2018-08-21] MEDS: MULTIVITAMIN LIQUID (CENTRUM) 60 ML BOTTLE PEG SCH (08:27)
[2018-08-21] MEDS: ENOXAPARIN 40 MG/0.4 ML SYRINGE SUBCUT SCH (12:59)
[2018-08-21] MEDS: PANTOPRAZOLE 40 MG VIAL IV SCH (13:00)
[2018-08-21] MEDS ORDERED: hydrALAZINE 20 MG/1 ML VIAL IV PRN (19:29)
[2018-08-22] MEDS: ALBUTEROL/IPRATROPIUM 3 ML NEB RESP TX SCH ×4 (00:30→21:15)
[2018-08-22] MEDS: PROPOFOL 1,000 MG/100 ML BOTTLE IV SCH ×3 (03:06→17:42)
[2018-08-22] MEDS: methylPREDNISolone SOD SUC 40 MG/1 ML VIAL IV SCH ×3 (04:35→20:32)
[2018-08-22 04:37] LABS: Allen Test Positive; Pt O2 Delivery Device Ventilator
[2018-08-22] MEDS: PIPERACILLIN/TAZOBACTAM 3,375 MG in SODIUM CHLORIDE 0.9% 100 ML IV SCH ×3 (04:38→20:32)
[2018-08-22 04:54] LABS: ABG Base Excess 13.1 MMOL/L (-2.5-2.5); ABG PCO2 46.3 MM HG (35-48); ABG PH 7.519 (7.35-7.45); ABG TCO2 34.6 MMOL/L (23-27)
[2018-08-22] MEDS: LEVOTHYROXINE 100 MCG TABLET PEG SCH (05:20)
[2018-08-22] MEDS: INSULIN LISPRO 100 UNIT/ML SUBCUT SCH ×4 (05:48→23:42)
[2018-08-22] MEDS: amLODIPine 10 MG TABLET PEG SCH (09:13)
[2018-08-22] MEDS: FERROUS SULFATE 300 MG/5 ML UDCUP PEG SCH ×2 (09:13→20:32)
[2018-08-22] MEDS: MONTELUKAST 10 MG TABLET PEG SCH (09:14)
[2018-08-22] MEDS: FOLIC ACID 1 MG TABLET PEG SCH (09:14)
[2018-08-22] MEDS: POTASSIUM CHLORIDE 20 MEQ/15 ML UDCUP PEG SCH (09:14)
[2018-08-22] MEDS: POLYETHYLENE GLYCOL POWDER 17 GM PACK PEG SCH (09:15)
[2018-08-22] MEDS: SODIUM CHLORIDE 0.9% 1,000 ML IV SCH (09:24)
[2018-08-22] MEDS: MULTIVITAMIN LIQUID (CENTRUM) 60 ML BOTTLE PEG SCH (09:33)
[2018-08-22] MEDS ORDERED: ACETAMINOPHEN 500 MG TABLET PEG PRN (12:29)
[2018-08-22] MEDS: INSULIN GLARGINE 100 UNIT/ML SUBCUT SCH (12:59)
[2018-08-22] MEDS: ENOXAPARIN 40 MG/0.4 ML SYRINGE SUBCUT SCH (13:21)
[2018-08-22] MEDS: PANTOPRAZOLE 40 MG VIAL IV SCH (13:23)
[2018-08-22] MEDS: VANCOMYCIN INJ 1,500 MG in SODIUM CHLORIDE 0.9% 500 ML IV SCH (13:31)
[2018-08-22] MEDS: traMADol 50 MG TABLET PEG SCH (20:31)
[2018-08-23] MEDS: VANCOMYCIN INJ 1,500 MG in SODIUM CHLORIDE 0.9% 500 ML IV SCH ×2 (00:46→13:49)
[2018-08-23] MEDS: PROPOFOL 1,000 MG/100 ML BOTTLE IV SCH ×3 (01:30→18:03)
[2018-08-23] MEDS: ALBUTEROL/IPRATROPIUM 3 ML NEB RESP TX SCH ×4 (02:03→19:24)
[2018-08-23] MEDS: methylPREDNISolone SOD SUC 40 MG/1 ML VIAL IV SCH ×3 (03:47→20:54)
[2018-08-23] MEDS: PIPERACILLIN/TAZOBACTAM 3,375 MG in SODIUM CHLORIDE 0.9% 100 ML IV SCH ×3 (03:48→20:56)
[2018-08-23 04:21] LABS: ABG Base Excess 11.7 MMOL/L (-2.5-2.5); ABG HCO3 35.5 MMOL/L (20-26); ABG Oxygen Saturation 99.7 % (95-100); ABG PCO2 43.6 MM HG (35-48); ABG PH 7.524 (7.35-7.45); ABG TCO2 32.9 MMOL/L (23-27); Pt O2 Delivery Device Ventilator
[2018-08-23 04:59] LABS: Basophils % 0.1 % (0.0-0.8); Hematocrit 26.5 VOL% (35.7-47.0); Hemoglobin 8.3 GM/DL (12.0-16.0); Immature Granulocytes % 1.5 %; Immature Granulocytes Absolute 0.14 #; Mean Corpuscular HGB Conc 31.3 GM/DL (32-36); Mean Corpuscular Hemoglobin 30 PG (27-34); Mean Platelet Volume 10.7 FL (9.6-12.0); Monocytes # 0.4 10*3/uL (0.11-0.8); Monocytes % 4.7 % (1.7-12.7); Neutrophils # 7.6 10*3/uL (1.4-7.4); Neutrophils % 82.7 % (38.7-73.9); Platelet Count 227 T/CUMM (130-400); Red Blood Count 2.76 MC/CUMM (3.8-5.5); Red Cell Distribution Width 16.4 % (9.3-17.3); White Blood Count 9.1 T/CUMM (4-12)
[2018-08-23 05:22] LABS: Hypochromasia 1+; Platelet Estimate Adequate
[2018-08-23] MEDS: LEVOTHYROXINE 100 MCG TABLET PEG SCH (05:38)
[2018-08-23] MEDS: INSULIN LISPRO 100 UNIT/ML SUBCUT SCH ×3 (05:38→18:52)
[2018-08-23 06:16] LABS: Alanine Aminotransferase 15 U/L (13-56); Albumin 1.4 G/DL (3.4-5.0); Alkaline Phosphatase 57 U/L (45-117); Aspartate Amino Transferase 14 U/L (0-37); Bilirubin,Total < 0.39 MG/DL (0.2-1.0); Blood Urea Nitrogen 29 MG/DL (7-18); Calcium 7.4 MG/DL (8.5-10.1); Glucose 188 MG/DL (74-106); Potassium 2.7 MMOL/L (3.5-5.1); Sodium 143 MMOL/L (136-145); Total Protein 5.9 G/DL (6.4-8.3)
[2018-08-23] MEDS ORDERED: FAMOTIDINE 20 MG TABLET PEG SCH (08:00)
[2018-08-23] MEDS ORDERED: MULTIVITAMIN (BEROCCA) TABLET PEG SCH (08:00)
[2018-08-23] MEDS: POTASSIUM CHLORIDE 20 MEQ/15 ML UDCUP PEG SCH ×4 (09:07→16:23)
[2018-08-23] MEDS: PANTOPRAZOLE 40 MG VIAL IV SCH ×2 (09:07→20:54)
[2018-08-23] MEDS: FOLIC ACID 1 MG TABLET PEG SCH (09:08)
[2018-08-23] MEDS: FERROUS SULFATE 300 MG/5 ML UDCUP PEG SCH ×2 (09:08→20:54)
[2018-08-23] MEDS: LISINOPRIL 5 MG TABLET PO SCH (09:08)
[2018-08-23] MEDS: traMADol 50 MG TABLET PEG SCH ×2 (09:08→20:56)
[2018-08-23] MEDS: amLODIPine 10 MG TABLET PEG SCH (09:09)
[2018-08-23] MEDS: INSULIN GLARGINE 100 UNIT/ML SUBCUT SCH (09:09)
[2018-08-23] MEDS: MONTELUKAST 10 MG TABLET PEG SCH (09:09)
[2018-08-23] MEDS: MULTIVITAMIN LIQUID (CENTRUM) 60 ML BOTTLE PEG SCH (09:11)
[2018-08-23] MEDS: POLYETHYLENE GLYCOL POWDER 17 GM PACK PEG SCH (09:11)
[2018-08-23] MEDS: ENOXAPARIN 40 MG/0.4 ML SYRINGE SUBCUT SCH (11:58)
[2018-08-23] MEDS: METOCLOPRAMIDE 10 MG/2 ML VIAL IV SCH ×2 (11:59→18:51)
[2018-08-23] MEDS ORDERED: DEXTROSE 50% 25 GM/50 ML SYRINGE IV PRN (15:08)
[2018-08-23] MEDS: SODIUM CHLORIDE 0.9% 1,000 ML IV SCH ×2 (18:54→19:30)
[2018-08-24] MEDS: METOCLOPRAMIDE 10 MG/2 ML VIAL IV SCH ×5 (00:31→23:56)
[2018-08-24] MEDS: VANCOMYCIN INJ 1,500 MG in SODIUM CHLORIDE 0.9% 500 ML IV SCH ×2 (00:32→14:25)
[2018-08-24] MEDS: INSULIN LISPRO 100 UNIT/ML SUBCUT SCH ×5 (00:33→23:56)
[2018-08-24] MEDS: PROPOFOL 1,000 MG/100 ML BOTTLE IV SCH ×2 (01:21→10:41)
[2018-08-24] MEDS: ALBUTEROL/IPRATROPIUM 3 ML NEB RESP TX SCH ×4 (01:54→19:58)
[2018-08-24] MEDS: methylPREDNISolone SOD SUC 40 MG/1 ML VIAL IV SCH ×3 (03:58→20:53)
[2018-08-24] MEDS: PIPERACILLIN/TAZOBACTAM 3,375 MG in SODIUM CHLORIDE 0.9% 100 ML IV SCH ×3 (03:59→20:52)
[2018-08-24 04:03] LABS: ABG Base Excess 9.9 MMOL/L (-2.5-2.5); ABG HCO3 33.7 MMOL/L (20-26); ABG Oxygen Saturation 99.6 % (95-100); ABG PCO2 47.4 MM HG (35-48); ABG PH 7.474 (7.35-7.45); ABG TCO2 31.9 MMOL/L (23-27); Allen Test Positive; Pt O2 Delivery Device Ventilator
[2018-08-24 05:00] LABS: Hematocrit 26.7 VOL% (35.7-47.0); Hemoglobin 8.4 GM/DL (12.0-16.0); Immature Granulocytes % 2.9 %; Immature Granulocytes Absolute 0.24 #; Lymphocytes % 11.9 % (21.3-54.2); Mean Corpuscular HGB Conc 31.5 GM/DL (32-36); Mean Corpuscular Hemoglobin 30 PG (27-34); Mean Corpuscular Volume 96.4 FL (87-102); Mean Platelet Volume 10.4 FL (9.6-12.0); Monocytes # 0.4 10*3/uL (0.11-0.8); Monocytes % 4.5 % (1.7-12.7); Neutrophils # 6.8 10*3/uL (1.4-7.4); Neutrophils % 80.7 % (38.7-73.9); Platelet Count 214 T/CUMM (130-400); Red Blood Count 2.77 MC/CUMM (3.8-5.5); Red Cell Distribution Width 16.5 % (9.3-17.3); White Blood Count 8.4 T/CUMM (4-12)
[2018-08-24 05:31] LABS: Alanine Aminotransferase 15 U/L (13-56); Albumin 1.3 G/DL (3.4-5.0); Alkaline Phosphatase 53 U/L (45-117); Aspartate Amino Transferase 13 U/L (0-37); Bilirubin,Total < 0.39 MG/DL (0.2-1.0); Blood Urea Nitrogen 24 MG/DL (7-18); Calcium 7.1 MG/DL (8.5-10.1); Glucose 92 MG/DL (74-106); Osmolality,Calculated 289.8 MOS/KG (273-304); Potassium 2.7 MMOL/L (3.5-5.1); Sodium 144 MMOL/L (136-145); Total Protein 5.8 G/DL (6.4-8.3)
[2018-08-24] MEDS: LEVOTHYROXINE 100 MCG TABLET PEG SCH (05:40)
[2018-08-24] MEDS ORDERED: POTASSIUM CHLORIDE 20 MEQ/15 ML UDCUP PER TUBE PRN (07:11)
[2018-08-24] MEDS: POTASSIUM CHLORIDE RIDER 10 MEQ in PREMIX 1 EACH IV SCH ×4 (07:30→11:09)
[2018-08-24] MEDS: FERROUS SULFATE 300 MG/5 ML UDCUP PEG SCH ×2 (08:23→20:54)
[2018-08-24] MEDS: FOLIC ACID 1 MG TABLET PEG SCH (08:23)
[2018-08-24] MEDS: traMADol 50 MG TABLET PEG SCH ×2 (08:23→20:54)
[2018-08-24] MEDS: MONTELUKAST 10 MG TABLET PEG SCH (08:24)
[2018-08-24] MEDS: amLODIPine 10 MG TABLET PEG SCH (08:24)
[2018-08-24] MEDS: POTASSIUM CHLORIDE 20 MEQ/15 ML UDCUP PEG SCH (08:25)
[2018-08-24] MEDS: POLYETHYLENE GLYCOL POWDER 17 GM PACK PEG SCH (08:25)
[2018-08-24] MEDS: INSULIN GLARGINE 100 UNIT/ML SUBCUT SCH (08:32)
[2018-08-24] MEDS: PANTOPRAZOLE 40 MG VIAL IV SCH ×2 (08:54→20:51)
[2018-08-24] MEDS: LISINOPRIL 5 MG TABLET PO SCH (08:55)
[2018-08-24] MEDS: POTASSIUM CHLORIDE 20 MEQ/15 ML UDCUP PER TUBE SCH ×4 (10:23→20:52)
[2018-08-24] MEDS: MULTIVITAMIN LIQUID (CENTRUM) 60 ML BOTTLE PEG SCH (14:11)
[2018-08-24] MEDS: ENOXAPARIN 40 MG/0.4 ML SYRINGE SUBCUT SCH (14:12)
[2018-08-24] MEDS: SODIUM CHLORIDE 0.9% 1,000 ML IV SCH (14:42)
[2018-08-24] MEDS ORDERED: POTASSIUM CHLORIDE RIDER 20 MEQ in PREMIX 1 EACH IV PRN (21:11)
[2018-08-25] MEDS: POTASSIUM CHLORIDE 20 MEQ/15 ML UDCUP PER TUBE SCH (00:01)
[2018-08-25] MEDS: ALBUTEROL/IPRATROPIUM 3 ML NEB RESP TX SCH ×3 (00:16→12:40)
[2018-08-25] MEDS: PROPOFOL 1,000 MG/100 ML BOTTLE IV SCH ×2 (00:44→10:20)
[2018-08-25 03:01] LABS: ABG Base Excess 11.5 MMOL/L (-2.5-2.5); ABG HCO3 36.1 MMOL/L (20-26); ABG Oxygen Saturation 98.4 % (95-100); ABG PH 7.494 (7.35-7.45); ABG PO2 149.9 MM HG (80-95); ABG TCO2 37.6 MMOL/L (23-27)
[2018-08-25 03:02] LABS: Allen Test Positive; Pt O2 Delivery Device Ventilator
[2018-08-25] MEDS: methylPREDNISolone SOD SUC 40 MG/1 ML VIAL IV SCH (04:57)
[2018-08-25] MEDS: PIPERACILLIN/TAZOBACTAM 3,375 MG in SODIUM CHLORIDE 0.9% 100 ML IV SCH ×2 (04:57→13:52)
[2018-08-25 05:19] LABS: Basophils % 0.1 % (0.0-0.8); Hematocrit 27.4 VOL% (35.7-47.0); Hemoglobin 8.6 GM/DL (12.0-16.0); Immature Granulocytes % 5.2 %; Immature Granulocytes Absolute 0.41 #; Lymphocytes % 12.5 % (21.3-54.2); Mean Corpuscular HGB Conc 31.4 GM/DL (32-36); Mean Corpuscular Hemoglobin 30 PG (27-34); Mean Corpuscular Volume 96.8 FL (87-102); Mean Platelet Volume 10.7 FL (9.6-12.0); Monocytes # 0.4 10*3/uL (0.11-0.8); Monocytes % 5.4 % (1.7-12.7); Neutrophils % 76.8 % (38.7-73.9); Platelet Count 223 T/CUMM (130-400); Red Blood Count 2.83 MC/CUMM (3.8-5.5); Red Cell Distribution Width 16.3 % (9.3-17.3); White Blood Count 7.8 T/CUMM (4-12)
[2018-08-25] MEDS: METOCLOPRAMIDE 10 MG/2 ML VIAL IV SCH (05:34)
[2018-08-25] MEDS: LEVOTHYROXINE 100 MCG TABLET PEG SCH ×2 (05:35→05:41)
[2018-08-25] MEDS: INSULIN LISPRO 100 UNIT/ML SUBCUT SCH ×2 (05:35→13:52)
[2018-08-25 05:48] LABS: Alanine Aminotransferase 20 U/L (13-56); Albumin 1.4 G/DL (3.4-5.0); Alkaline Phosphatase 51 U/L (45-117); Aspartate Amino Transferase 20 U/L (0-37); Bilirubin,Total < 0.39 MG/DL (0.2-1.0); Blood Urea Nitrogen 22 MG/DL (7-18); Calcium 7.2 MG/DL (8.5-10.1); Glucose 138 MG/DL (74-106); Potassium 3.2 MMOL/L (3.5-5.1); Sodium 143 MMOL/L (136-145); Total Protein 5.4 G/DL (6.4-8.3)
[2018-08-25 06:03] LABS: Anisocytosis 1+; Hypochromasia 1+; Lymphocytes 10 % (20-55); Metamyelocytes 1 %; Myelocytes 3 %; Platelet Estimate Adequate; Segmented Neutrophils 83 % (50-85); Total Cells Counted 100
[2018-08-25] MEDS ORDERED: POTASSIUM CHLORIDE 20 MEQ/15 ML UDCUP PER TUBE PRN (06:27)
[2018-08-25] MEDS ORDERED: FUROSEMIDE 40 MG/4 ML VIAL IV SCH (09:00)
[2018-08-25] MEDS ORDERED: VANCOMYCIN INJ 1,500 MG in SODIUM CHLORIDE 0.9% 500 ML IV SCH (09:00)
[2018-08-25] MEDS ORDERED: methylPREDNISolone SOD SUC 40 MG/1 ML VIAL IV SCH (09:00)
[2018-08-25] MEDS: POTASSIUM CHLORIDE 20 MEQ/15 ML UDCUP PEG SCH (09:52)
[2018-08-25] MEDS: FERROUS SULFATE 300 MG/5 ML UDCUP PEG SCH (09:52)
[2018-08-25] MEDS: METOCLOPRAMIDE 10 MG/10 ML UDCUP PO SCH ×2 (09:52→13:50)
[2018-08-25] MEDS: FOLIC ACID 1 MG TABLET PEG SCH (09:53)
[2018-08-25] MEDS: MULTIVITAMIN LIQUID (CENTRUM) 60 ML BOTTLE PEG SCH (09:53)
[2018-08-25] MEDS: MONTELUKAST 10 MG TABLET PEG SCH (09:53)
[2018-08-25] MEDS: amLODIPine 10 MG TABLET PEG SCH (09:53)
[2018-08-25] MEDS: LISINOPRIL 5 MG TABLET PO SCH (09:53)
[2018-08-25] MEDS: POLYETHYLENE GLYCOL POWDER 17 GM PACK PEG SCH (09:54)
[2018-08-25] MEDS: PANTOPRAZOLE 40 MG VIAL IV SCH (10:02)
[2018-08-25] MEDS: traMADol 50 MG TABLET PEG SCH (10:04)
[2018-08-25] MEDS: INSULIN GLARGINE 100 UNIT/ML SUBCUT SCH (10:35)
[2018-08-25] MEDS: ENOXAPARIN 40 MG/0.4 ML SYRINGE SUBCUT SCH (13:51)
[2018-08-25] MEDS: SODIUM CHLORIDE 0.9% 1,000 ML IV SCH (15:08)
[2018-08-25 15:24] VITALS: BP 133/85
== END 2018-08-25 15:23 | DRG 870 ==
LOC: EDUNIT# → EDBD → N.ED 07:58 → SUATTDRO 12:19 → N.EDINP 12:19 → N.CC 12:50
PROVIDERS: ADMIT Internal Medicine; ATTEND Internal Medicine